=== PATIENT | female | born 1960 | race Caucasian/White ===

== ENCOUNTER → 2021-02-16 12:39 | Outpatient (BNVA) | payer MEDICARE, MEDICAID, SELFPAY | PROVIDERS: Family Provider Family Medicine; PCP Family Medicine; Referring Provider Internal Medicine Cardiovascular Disease; Visit Provider Internal Medicine | DX: E11.40 Type 2 diabetes mellitus with diabetic neuropathy, unspecified (principal); E11.59 Type 2 diabetes mellitus with other circulatory complications; I25.10 Atherosclerotic heart disease of native coronary artery without angina pectoris; E11.65 Type 2 diabetes mellitus with hyperglycemia | CPT/HCPCS: 99204 ==

== ENCOUNTER 2021-03-28 10:01 | Outpatient (CLI) | payer MEDICARE, MEDICAID, SELFPAY ==
--- NOTE | 2021-03-28 10:15 | USCV_ITS ---
Tammi Clark Age: 61 Gender: F : 1960 Exam Date: 03/28/2021 10:18 Ordering Phys: Xochilt Gibson Technologist: Exam [place] [facility] [place]: Risk Factors: Previous Vascular Surgery: Right Brachial BP: / Left Brachial BP: / Right Left Velocity (cm/s) Spectral Plaque Velocity (cm/s) Spectral Plaque Syst/Diast Broadening Syst/Diast Broadening 82.70/ 12.10 Prox CCA 72.10 / 6.00 134.85/26.65 Mid CCA 61.10 / 11.00 95.90/ 15.40 Hetro Distal CCA 70.10 / 10.00 Hetro 136.70/20.10 Hetro Prox ICA 100.20/ 19.00 Hetro 168.60/36.80 Hetro Mid ICA 98.20 / 21.00 Hetro 157.80/29.10 Distal ICA 136.40/ 21.50 207.10 ECA 128.20 0.98 ICA/CCA 1.89 Antegrade Vertebral Antegrade 46.80/ 6.50 cm/s 54.10/ 12.00 cm/s Tri Subclavian Tri 115.2 121.2 0 0 FINDINGS Internal carotid artery on the right side moderate to heavy heterogeneous plaques at the bifurcation and proximal carotid arteries bilaterally. Mild to moderate scattered plaques in the common carotid arteries bilaterally. Antegrade flow in the vertebral arteries bilaterally. Elevated velocity in the right external carotid artery Normal Doppler flow velocities in the subclavian arteries bilaterally CONCLUSIONS Moderate to heavy heterogeneous plaques at the right bifurcation and proximal internal carotid artery with Doppler features, suggesting 50 to 69% stenosis . Moderate heterogeneous plaques at the left bifurcation and proximal internal carotid artery with Doppler features, suggesting less than 50% stenosis. Elevated velocity in the external carotid artery on the right side, suggestive of hemodynamically significant stenosis. No significant stenosis in the subclavian and vertebral arteries bilaterally. No previous studies are available for comparison. Dr Hernan Bautista MD [facility] (Electronically Signed) Final Date: 30 Mar 2021 00:11 S
== END 2021-03-28 10:02 | disposition home or self-care (01) ==
LOC: US 10:05
PROVIDERS: PCP Family Medicine; Visit Provider Nurse Practitioner Family
DX: R09.89 Other specified symptoms and signs involving the circulatory and respiratory systems (principal); I65.23 Occlusion and stenosis of bilateral carotid arteries
CPT/HCPCS: 93880

== ENCOUNTER 2021-04-12 09:35 | Outpatient (CLI) | payer MEDICARE, MEDICAID, SELFPAY ==
--- NOTE | 2021-04-12 10:00 | CT_ITS ---
WS: [id number] CT ANGIOGRAM CAROTID ARTERIES HISTORY: I65.21 - Occlusion and stenosis of right carotid artery TECHNIQUE: CT angiogram is performed of the carotid arteries. During arterial injection imaging is ob tained from the skull base to the aortic arch in 1.25 mm imaging. Coronal and sagittal reformats are submitted, MIP imaging also reviewed. Additional multiplanar reformats of the carotid arteries are ryan bmitted. NASCET criteria utilized. All CT scans at [facility] use at least one of these d ose optimization techniques: automated exposure control; mA and/or kV adjustment per patient size (in cludes targeted exams where dose is matched to clinical indication); or iterative reconstruction. CONTRAST: Omnipaque 350; 95 mL IV. DLP: 954.76 mGycm COMPARISON: None available. Right carotid: Common carotid artery: Normally arises from the innominate artery. There are a few scattered calcifie d plaques and mild intimal thickening. Internal carotid artery: Moderate burden of calcified plaque and intimal thickening at the bifurcatio n. Irregular plaque at the bifurcation extending into the proximal ICA. Stenosis calculated at 61%. External carotid artery: Patent. Left carotid: Common carotid artery: Mild plaque without stenosis. Internal carotid artery: Calcified plaque involving the proximal ICA with stenosis calculated at 40%. External carotid artery: Patent. Right vertebral artery: Unremarkable. Left vertebral artery: Unremarkable. Arises normally from the left subclavian artery. Subclavian arteries: Mild atherosclerotic disease within the subclavian arteries. No significant sten osis identified. Upper thorax: Normal. Thyroid gland: Normal. Osseous structures: Straightening of the normal cervical lordosis. Moderate size vertebral body osteo phytes with disc space narrowing. Skull base: Moderate amount of calcified plaque through the cavernous sinuses of the intracranial car otid artery. CT/CT angio neck [id number] IMPRESSION: 1. LEFT ICA stenosis 61%. 2. RIGHT ICA stenosis 40%. 3. Moderate atherosclerotic plaque within the intracranial carotid arteries in the cavernous sinus.
[2021-04-12 10:23] LABS: Blood Urea Nitrogen 15 mg/dL (8-23); Glomerular Filtration Rate 84.8 mL/min (90-130)
== END 2021-04-12 09:36 | disposition home or self-care (01) ==
PROVIDERS: PCP Family Medicine; Visit Provider Nurse Practitioner Family
DX: I65.23 Occlusion and stenosis of bilateral carotid arteries (principal)
CPT/HCPCS: 70498; 82565; 84520; Q9967

== ENCOUNTER 2021-06-14 08:37 | Outpatient (CLI) | payer OTHER, MEDICAID, SELFPAY ==
--- NOTE | 2021-06-14 08:45 | USCV_ITS ---
Tammi Clark Age: 61 Gender: F : 1960 Exam Date: 06/14/2021 09:08 Ordering Phys: Myron Lerner MD (Andy) ([email or web address] [place]) Technologist: Exam Location: [facility] [place] Indication: CCA STENOSIS Risk Factors: Previous Vascular Surgery: Right Brachial BP: / Left Brachial BP: / Right Left Velocity (cm/s) Spectral Plaque Velocity (cm/s) Spectral Plaque Syst/Diast Broadening Syst/Diast Broadening 92.60/ 14.30 Prox CCA 75.00 / 9.70 81.60/ 13.20 Mid CCA 75.00 / 7.30 78.30/ 15.40 Hetro Distal CCA 78.20 / 11.30 Hetro 180.00/15.00 Hetro Prox ICA 106.20/ 17.10 Hetro 133.40/26.70 Hetro Mid ICA 127.10/ 20.90 Hetro 123.70/20.60 Hetro Distal ICA 180.20/ 37.90 Hetro 185.30 ECA 151.80 1.98 ICA/CCA 2.30 Antegrade Vertebral Antegrade 48.40/ 7.30 cm/s 67.00/ 12.40 cm/s Tri Subclavian Tri 121.0 141.4 0 0 FINDINGS Comparison:. 03/28/21 and CTA 04/12/21. Moderate, stable elevation of velocity right ICA with mild tubulence. Mild elevation of ECA velocity. Diffuse scattered plaque in each carotid artery. Mild elevation of velocity left ICA. Bilateral antegrade vertebral arteries. CONCLUSIONS Right ICA stenosis 50-69%. No interval change in stenosis since prior exam. Left ICA stenosis < 50%. No interval change in stenosis since prior exam. Bilateral diffuse plaque is stable. Dr. Leslie Titus DO (Electronically Signed) Final Date: 14 June 2021 11:55 S
== END 2021-06-14 08:38 | disposition home or self-care (01) ==
PROVIDERS: PCP Family Medicine; Visit Provider Thoracic Surgery (Cardiothoracic Vascular Surgery)
DX: I65.23 Occlusion and stenosis of bilateral carotid arteries (principal)
CPT/HCPCS: 93880

== ENCOUNTER 2021-12-01 12:52 | Emergency (ER) | payer OTHER, MEDICAID, SELFPAY ==
[2021-12-01 13:21] VITALS: BP 124/76; PULSE 67; RESP 16; TEMP 37.2; O2SAT 96; BMI 35.9
--- NOTE | 2021-12-01 14:37 | ED_ITS ---
HPI - COVID General: Chief Complaint: COVID symptoms Stated Complaint: Running a fevor last night, and ABD Pain Time Seen by Provider: 12/01/21 13:58 Triage information: Has fever, cough or shortness of breath . No known COVID + exposure last 14 days History of Present Illness: HPI Narrative: Ms. Clark is a 61-year-old lady with history of hypertension, hyperlipidemia, diabetes, CAD, history of atrial fibrillation who presents to the emergency department due to fever and generalized symptoms. Symptom onset was noticed yesterday with subjective fevers and chills. Additionally she noted bilateral lower abdominal discomfort that radiates to bilateral flanks. She has generalized muscle aches and pains. She has been vaccinated against flu and COVID and does not know of sick contacts other than minor cold-like symptoms. Overall the course of symptoms has persisted. She has taken wddk-yqe-jkequsf medications without significant relief. Intensity is moderate. No other specific exacerbating relieving factors identified. MD complaint: has COVID symptoms Prior covid testing: no COVID 19 common symptoms: positive fever(s), chills, cough, body aches and nausea Onset (ago): day(s) Severity: moderate Pertinent comorbid conditions: diabetes, hypertension and heart disease Treatment prior to arrival: acetaminophen and ibuprofen COVID Results: SARS-CoV-2 Antigen (Rapid) Positive (Negative) H 12/01/21 15:20 12/01/21 Review of Systems General: Reports: 10 or more systems reviewed and unremarkable except in HPI and below Const: Reports: fever(s), chills and body aches GI: Reports: nausea PFSH ED PFSH: Medical History Atrial fibrillation CAD (coronary artery disease) COPD (chronic obstructive pulmonary disease) Diabetes mellitus HTN (hypertension) Hyperlipidemia Surgical History S/P CABG (coronary artery bypass graft) Family History Brother Cancer Sister Cancer Father CAD (coronary artery disease) Myocardial infarction Diabetes Hypertension Mother CAD (coronary artery disease) Social History Smoking and tobacco status: former smoker Physical Exam Const: COMMON NORMALS: alert GENERAL APPEARANCE: cooperative, well developed and ill appearing (Mildly) HENMT: COMMON NORMALS: normocephalic and atraumatic HEAD & SCALP: normocephalic and atraumatic THROAT: posterior oropharynx normal Eye: COMMON NORMALS: conjunctivae normal CONJUNCTIVA: Yes conjunctivae nor mal SCLERA: sclerae normal Neck/C-Spine: COMMON NORMALS: supple GENERAL: Yes trachea midline Resp: COMMON NORMALS: normal respiratory effort EFFORT & INSPECTION: Yes able to speak in complete sentences AUSCULTATION: rhonchi lower bilaterally Cardio: COMMON NORMALS: regular rate and regular rhythm RATE: regular rate RHYTHM: regular rhythm GI: COMMON NORMALS: Soft to palpation PALPATION: Yes Soft to palpation and No Tenderness to palpation present (GI) PERCUSSION: normal to percussion Extremity: GENERAL: Yes normal exam except as noted and No edema Neuro: COMMON NORMALS: moves all extremities SENSORIUM/ORIENTATION: Yes alert and No Orientation impaired Psych: COMMON NORMALS: mental status grossly normal and Normal thought process present THOUGHT PROCESS: Normal thought process present Course ED course: - Patient was seen and evaluated by me at bedside - Patient placed on cardiac monitors, IV access obtained - Initial evaluation notable for exam as above -IV fluids given - Labs notable for mild hemoconcentration, no leukocytosis. There is squamous epithelial contamination in the nitrate negative urinalysis, low clinical suspicion for infection especially given positive COVID test and more myalgia sounding in nature - Imaging notable for negative chest x-ray - Upon serial reexamination after treatment the patient was mildly proved - Based on patient history, evaluation, labs, and imaging as interpreted the most likely cause of the patient's condition is COVID-19. Patient does not require oxygen at this time. - The results of ED evaluation were discussed with the patient including prescriptions and/or symptomatic cares (if applicable) including appropriate and responsible use, followup plan, and return precautions. Offered monoclonal antibody infusion in the outpatient setting, order will be placed. The patient verbalized understanding and felt safe for discharge. - Patient discharged in satisfactory condition. Note: Click bubbles or prepopulated huber in note writing are used for assistance with data collection and billing and are inherently more limited than narrative and other text portions of this note. Please use narrative for additional clinical history and defer to narrative/free test for any case of contradictory information. If information appears in only free text or click bubble it should be considered present or absent as reported. Please contact note marine underwriter for clarifications of clinical information or contradictory information. MDM is a brief summary, contradictory or erroneous seeming information should be clarified and full note should be reviewed. Vital Signs: Vital signs: Vital Signs Temperature 99.0 F 12/01/21 13:21 Pulse Rate 75 12/01/21 17:30 Respiratory Rate 16 12/01/21 17:30 Blood Pressure 155/77 12/01/21 17:30 Pulse Oximetry 92 12/01/21 17:30 MDM - COVID MDM Narrative Medical decision making narrative: 61-year-old lady presenting with Covid-like symptoms found to be Covid positive. No oxygen requirement and did have some improvement with symptom treatment. Satisfactory for outpatient management. Medical Records Attestation: I reviewed the patient's medical records. Lab Data Attestation: I reviewed the patient's lab results. Result diagrams: 12/01/21 15:20 12/01/21 15:20 Labs: Lab Results 12/01/21 12/01/21 12/01/21 15:20 15:20 15:20 WBC 4.6 10^3/uL 10^3/uL (4.0-10.0) RBC 5.52 10^6/uL H 10^6/uL (4.1-5.3) Hgb 15.5 g/dL H g/dL (11.5-15.3) Hct 47.3 % H % (37.0-47.0) MCV 85.7 fl fl (81-99) MCH 28.1 pg pg (28.0-34.0) MCHC 32.8 g/dL g/dL (30.0-36.0) RDW 13.0 % % (12.1-15.1) Plt Count 176 10^3/cmm 10^3/cmm (130-400) MPV 10.6 fL H fL (7.4-10.4) Neut % (Auto) 51.0 % % Lymph % (Auto) 34.1 % % [place] % (Auto) 14.3 % % Eos % (Auto) 0.0 % % Baso % (Auto) 0.4 % % Neut # (Auto) 2.32 10^3/uL 10^3/uL (1.8-7.7) Lymph # (Auto) 1.6 10^3/uL 10^3/uL (0.8-4.8) [place] # (Auto) 0.7 10^3/uL 10^3/uL (0.2-0.9) Eos # (Auto) 0.0 10^3/uL 10^3/uL (0.0-0.8) Baso # (Auto) 0.0 10^3/uL 10^3/uL (0.0-0.1) Nucleated RBC % (auto) 0 % % Nucleated RBCs # 0.0 /100WBC /100WBC Sodium 135 mmol/L L mmol/L (136-145) Potassium 3.9 mmol/L mmol/L (3.5-5.1) Chloride 99 mmol/L mmol/L (98-107) Carbon Dioxide 23 mmol/L mmol/L (22-29) Anion Gap 16.9 (5-19) BUN 15 mg/dL mg/dL (8-23) Creatinine 0.8 mg/dL mg/dL (0.5-0.9) GFR Calculation 72.7 mL/min L mL/min (90-130) Glucose 141 mg/dL H mg/dL (65-115) Calculated Osmolality 283 mOsm/kg L mOsm/kg (285-295) Calcium 8.6 mg/dL mg/dL (8.5-10.5) Total Bilirubin 0.2 mg/dL mg/dL (0.15-1.2) AST 25 U/L U/L (0-32) ALT 28 U/L U/L (0-33) Alkaline Phosphatase 79 IU/L IU/L (35-105) Total Protein 7.0 g/dL g/dL (6.6-8.7) Albumin 4.1 g/dL g/dL (3.5-5.2) Globulin 2.9 g/dL g/dL (1.3-4.6) Lipase 35 U/L U/L (13-60) Urine Color Urine Appearance Urine pH Ur Specific [place] Urine Protein Urine Glucose (UA) Urine Ketones Urine Blood Urine Nitrate Urine Bilirubin Urine Urobilinogen Ur Leukocyte Esterase Urine RBC Urine WBC Ur Squamous Epith Cells Amorphous Sediment Urine Bacteria Influenza Type A Ag Negative (Negative) Influenza Type B Ag Negative (Negative) SARS-CoV-2 Ag (Rapid) 12/01/21 12/01/21 15:20 15:59 WBC RBC Hgb Hct MCV MCH MCHC RDW Plt Count MPV Neut % (Auto) Lymph % (Auto) [place] % (Auto) Eos % (Auto) Baso % (Auto) Neut # (Auto) Lymph # (Auto) [place] # (Auto) Eos # (Auto) Baso # (Auto) Nucleated RBC % (auto) Nucleated RBCs # Sodium Potassium Chloride Carbon Dioxide Anion Gap BUN Creatinine GFR Calculation Glucose Calculated Osmolality Calcium Total Bilirubin AST ALT Alkaline Phosphatase Total Protein Albumin Globulin Lipase Urine Color Yellow (Yellow) Urine Appearance Sl cloudy A (CLEAR) Urine pH 5 (5-7) Ur Specific [place] 1.010 (1.005-1.030) Urine Protein Neg (Negative) Urine Glucose (UA) 4+ H (Normal) Urine Ketones Negative (Negative) Urine Blood Trace H (Negative) Urine Nitrate Negative (Negative) Urine Bilirubin Neg (Negative) Urine Urobilinogen Neg mg/dL mg/dL (Negative) Ur Leukocyte Esterase 2+ H (Negative) Urine RBC 0-4 /hpf H /hpf (0-2) Urine WBC 5-10 /hpf H /hpf (0-5) Ur Squamous Epith Cells 15-25 /hpf H /hpf (0-5) Amorphous Sediment Not Reportable Urine Bacteria 1+ /hpf H /hpf (NONE) Influenza Type A Ag Influenza Type B Ag SARS-CoV-2 Ag (Rapid) Positive H (Negative) COVID Results: SARS-CoV-2 Antigen (Rapid) Positive (Negative) H 12/01/21 15:20 12/01/21 EKG Data EKG 1: Attestation: I personally reviewed and interpreted this EKG as follows: EKG interpretation date: 12/01/21 EKG interpretation time: 15:21 Ischemic changes: non-specific ST-T wave changes Interpretation: Twelve-lead EKG shows a regular rhythm at a rate of 87. NE interval 180, QRS duration 94, QTc 401. Normal axis. Interpretation: Sinus rhythm. Nonspecific ST segment abnormalities. Discharge Plan Discharge Patient Disposition: Home Clinical Impression: COVID-19, Myalgia, Dehydration, Glucosuria Condition: Stable Prescriptions: No Action lisinopril 5 mg tablet 5 mg PO DAILY 0RF aspirin 325 mg tablet 325 mg PO DAILY 0RF pantoprazole 40 mg tablet,delayed release (DR/EC) 40 mg PO DAILY 0RF gabapentin 300 mg capsule 300 mg PO BID 0RF potassium chloride 20 mEq tablet,ER particles/crystals 20 meq PO DAILY 0RF atorvastatin 20 mg tablet 20 mg PO DAILY 0RF Lantus U-100 Insulin 100 unit/mL solution See Rx Instructions SUBCUT BID 0RF Rx Instructions: 37 in the morning, 47 at night SUBCUT twice a day; Trulicity 1.5 mg/0.5 mL pen injector SUBCUT Q7D 0RF Rx Instructions: q7days Jardiance 10 mg tablet 10 mg PO DAILY 0RF citalopram 10 mg tablet 10 mg PO DAILY 0RF Discharge Orders: Discharge ED (Routine); Ordered 12/01/21 Ordered By: Tobias Hall Referrals: Arben Concepcion [Primary Care Provider] - Discharge Diet: Usual diet Discharge Activity: Resume usual activity Patient Instructions: COVID-19 (Coronavirus Disease 2019) (ED) Activity Restrictions/Additional Instructions: Thank you for visiting the emergency department. You were seen and evaluated for shortness of breath and aches and pains. Symptoms are likely related to COVID-19. Your labs do show mild evidence of dehydration as well as the positive COVID test. Your urinalysis does show a few white blood cells however there are is skin cell contamination likely causing this. You may use [id number] medications for symptoms. Please return to the emergency department for worsening symptoms, inability tolerate oral intake, oxygen saturations on pulse ox less than 90%, or anything else that you are concerned about a feel needs emergency department evaluation. Coding Level of Care Code ED Java Web User Interface Developer for Srini Hughes Exam Comprehensive
--- NOTE | 2021-12-01 14:38 | PC.NURSE ---
REPORT GIVEN TO JUDY ELIZALDE PATIENT PLACE ON ED CART NOTIFIED THAT PATIENT IS NOT ON THE MONITOR
--- NOTE | 2021-12-01 14:44 | XR_ITS ---
WS: [id number] Exam: XR chest 1V portable [id number] Date/Time of Exam: 12/01/2021 2:50 PM Reason For Exam: cough Comparison 04/10/2017. The lungs are clear and fully inflated. No pleural effusions. Normal heart size. The mediastinum is n ormal in contour. Signs of previous CABG surgery with median sternotomy. Bony structures are intact. XR/XR chest 1V portable [id number] IMPRESSION: 1. No acute cardiopulmonary finding.
--- NOTE | 2021-12-01 14:45 | ECG_ITS ---
[facility] Test Date: 2021-12-01 Pat Name: Tammi Clark Department: Room: Gender: Female Cook'S Assistant: : 1960 Requested By: Tobias Hall Order Number: [id number] Jennifer MD: Hernan Bautista M.D. Measurements Intervals [place] Rate: 87 P: 41 DE: 180 QRS: 21 QRSD: 94 T: 96 QT: 357 QTc: 431 Interpretive Statements SINUS RHYTHM INCOMPLETE RIGHT BUNDLE BRANCH BLOCK [90+ ms QRS DURATION, TERMINAL R IN V1/V2, 40+ ms S IN I/aVL/V4/V5/V6] NONSPECIFIC ST & T-WAVE ABNORMALITY Compared to ECG 04/10/2017 22:56:18 Incomplete right bundle-branch block now present Supraventricular rhythm no longer present T-wave abnormality still present Electronically Signed On 12-02-2021 14:19:09 SALES MERCHANDISING SPECIALIST by Hernan Bautista M.D. [id number]
[2021-12-01 15:29] LABS: Basophils % 0.4 %; Hematocrit 47.3 % (37.0-47.0); Hemoglobin 15.5 g/dL (11.5-15.3); Lymphocytes # 1.6 10^3/uL (0.8-4.8); Lymphocytes % 34.1 %; Mean Corpuscular HGB Conc 32.8 g/dL (30.0-36.0); Mean Corpuscular Hemoglobin 28.1 pg (28.0-34.0); Mean Corpuscular Volume 85.7 fl (81-99); Mean Platelet Volume 10.6 fL (7.4-10.4); Monocytes # 0.7 10^3/uL (0.2-0.9); Monocytes % 14.3 %; Neutrophils # 2.32 10^3/uL (1.8-7.7); Nucleated Red Blood Cells % 0 %; Platelet Count 176 10^3/cmm (130-400); Red Blood Count 5.52 10^6/uL (4.1-5.3); White Blood Count 4.6 10^3/uL (4.0-10.0)
[2021-12-01 15:34] VITALS: BP 121/63; PULSE 70; RESP 16; O2SAT 96; O2SAT 99
[2021-12-01 15:50] LABS: Alanine Aminotransferase 28 U/L (0-33); Albumin Level 4.1 g/dL (3.5-5.2); Alkaline Phosphatase 79 IU/L (35-105); Anion Gap 16.9 (5-19); Aspartate Amino Transferase 25 U/L (0-32); Blood Urea Nitrogen 15 mg/dL (8-23); Calcium 8.6 mg/dL (8.5-10.5); Carbon Dioxide 23 mmol/L (22-29); Chloride 99 mmol/L (98-107); Globulin 2.9 g/dL (1.3-4.6); Glomerular Filtration Rate 72.7 mL/min (90-130); Glucose 141 mg/dL (65-115); Lipase 35 U/L (13-60); Osmolality Calculated 283 mOsm/kg (285-295); Potassium 3.9 mmol/L (3.5-5.1); Sodium 135 mmol/L (136-145); Total Bilirubin 0.2 mg/dL (0.15-1.2)
[2021-12-01] MEDS: sodium chloride 0.9% 500 ML 999 ML IV (16:00)
[2021-12-01 16:36] VITALS: BP 144/79; PULSE 89; RESP 17; O2SAT 97
[2021-12-01 16:45] LABS: Protein Urine Neg (Negative); Urine Color Yellow (Yellow); pH Urine 5 (5-7)
[2021-12-01 16:45] LABS: SARS Covid-2 Antigen Positive (Negative)
[2021-12-01 16:46] LABS: Add Urine Microscopic? YES; Bilirubin Urine Neg (Negative); Blood Urine Trace (Negative); Glucose Urine UA 4+ (Normal); Ketones Urine Negative (Negative); Leukocyte Esterase Urine 2+ (Negative); Nitrate Urine Negative (Negative); Urobilinogen Urine Neg (Negative)
[2021-12-01 16:47] LABS: Add Urine Culture? No; Bacteria Urine 1+ /hpf; RBC Urine 0-4 /hpf (0-2); Squamous Epithelial Cell Urine 15-25 /hpf (0-5)
[2021-12-01 17:30] VITALS: BP 155/77; PULSE 75; RESP 16; O2SAT 92
[2021-12-01 17:48] LABS: Influenza A by IFA Negative (Negative); Influenza B by IFA Negative (Negative)
== END 2021-12-01 17:25 | disposition home or self-care (01) ==
PROVIDERS: Emergency Provider Emergency Medicine; PCP Family Medicine
DX: U07.1 COVID-19 (principal); E86.0 Dehydration; R81 Glycosuria; I48.91 Unspecified atrial fibrillation; I25.10 Atherosclerotic heart disease of native coronary artery without angina pectoris; J44.9 Chronic obstructive pulmonary disease, unspecified; E11.9 Type 2 diabetes mellitus without complications; I10 Essential (primary) hypertension; E78.5 Hyperlipidemia, unspecified; Z87.891 Personal history of nicotine dependence; Z79.82 Long term (current) use of aspirin; Z79.4 Long term (current) use of insulin
CPT/HCPCS: 71045; 80053; 81001; 83690; 85025; 87426; 87804; 93005; 99283; J7040

== ENCOUNTER 2022-01-17 14:20 | Outpatient (CLI) | payer OTHER, MEDICAID, SELFPAY ==
--- NOTE | 2022-01-17 14:15 | USCV_ITS ---
Tammi Clark Age: 61 Gender: F : 1960 Exam Date: 01/17/2022 14:35 Ordering Phys: Myron Lerner MD (Andy) ([email or web address] [place]) Technologist: Volodymyr Joseph Exam Location: [facility] [place] Indication: CAROTID STENOSIS Risk Factors: Previous Vascular Surgery: Right Brachial BP: / Left Brachial BP: / Right Left Velocity (cm/s) Spectral Plaque Velocity (cm/s) Spectral Plaque Syst/Diast Broadening Syst/Diast Broadening 206.30/18.30 Prox CCA 106.20/ 21.20 78.50/ 22.50 Mid CCA 94.00 / 17.90 87.00/ 18.60 Distal CCA 79.50 / 17.90 132.50/31.20 Prox ICA 119.60/ 31.10 189.60/50.70 Mid ICA 91.00 / 25.60 108.80/18.60 Distal ICA 122.10/ 38.70 105.60 ECA 192.60 2.42 ICA/CCA 0.97 Antegrade Vertebral Antegrade 90.10/ 26.40 cm/s 51.50/ 11.10 cm/s Bi Subclavian Tri 164.7 123.5 0 0 FINDINGS Comparison:. /03/01. Diffuse bilateral scattered calcified plaque and intimal thickening throughout the common carotid arteries and extending through the bifurcation. Moderate elvation of right ICA velocity. Slightly improved stenosis on the left. Antegrade vertebral arteries. CONCLUSIONS Right ICA stenosis 50-69%. Left ICA stenosis < 50%. No interval change in stenosis since prior exam. Dr. Leslie Titus DO (Electronically Signed) Final Date: 17 January 2022 16:40 S
== END 2022-01-17 14:21 | disposition home or self-care (01) ==
LOC: RAD 14:21
PROVIDERS: PCP Family Medicine; Visit Provider Thoracic Surgery (Cardiothoracic Vascular Surgery)
DX: I65.23 Occlusion and stenosis of bilateral carotid arteries (principal)
CPT/HCPCS: 93880

== ENCOUNTER → 2022-09-13 11:51 | Outpatient (BNVA) | payer MEDICARE, MEDICAID, SELFPAY | PROVIDERS: PCP Family Medicine; Visit Provider Internal Medicine Cardiovascular Disease | DX: I48.19 Other persistent atrial fibrillation (principal); I25.810 Atherosclerosis of coronary artery bypass graft(s) without angina pectoris; Z95.1 Presence of aortocoronary bypass graft; Z87.891 Personal history of nicotine dependence; I10 Essential (primary) hypertension; E78.5 Hyperlipidemia, unspecified; E11.40 Type 2 diabetes mellitus with diabetic neuropathy, unspecified; E11.649 Type 2 diabetes mellitus with hypoglycemia without coma; Z79.4 Long term (current) use of insulin; E11.59 Type 2 diabetes mellitus with other circulatory complications | CPT/HCPCS: 99213; 99214 ==

== ENCOUNTER 2022-11-07 14:50 | Outpatient (CLI) | payer MEDICARE, MEDICAID, SELFPAY ==
--- NOTE | 2022-11-07 15:15 | USCV_ITS ---
Tammi Clark Age: 62 Gender: F : 1960 Exam Date: 11/07/2022 15:08 Ordering Phys: Myron Lerner MD (Andy) ([email or web address] [place]) Technologist: CARISA Exam Location: [facility] [place] Indication: Carotid Stenosis Risk Factors: Previous Vascular Surgery: Right Brachial BP: / Left Brachial BP: / Right Left Velocity (cm/s) Spectral Plaque Velocity (cm/s) Spectral Plaque Syst/Diast Broadening Syst/Diast Broadening 89.30/ 14.30 Prox CCA 75.00 / 11.00 Hetro 67.30/ 13.20 Hetro Mid CCA 88.20 / 15.40 Hetro 79.40/ 18.70 Hetro Distal CCA 83.80 / 16.50 Hetro 84.10/ 14.50 Hetro Prox ICA 122.40/ 28.70 Hetro 147.60/57.50 Hetro Mid ICA 110.30/ 26.50 Hetro 185.30/52.20 Hetro Distal ICA 195.80/ 48.20 Hetro 131.50 Hetro ECA 99.20 Hetro 2.07 ICA/CCA 2.22 Antegrade Vertebral Antegrade 76.20/ 18.40 cm/s 56.20/ 5.50 cm/s Tri Subclavian Tri 194.2 94.80 0 FINDINGS comparison 01/17/22 CONCLUSIONS Progressed velocities in the ICA's distally compared to previous. This could be further evaluated with CTA. Right ICA stenosis 50-69% with elevated velocities in the mid right ICA. Moderate calcified atheromatous plaque right carotid bulb/ICA. Left ICA stenosis <50% at the upper end of the range.. Moderate calcified atheromatous plaque left carotid bulb/ICA. Normal antegrade Doppler flow noted in the right vertebral artery. Normal antegrade Doppler flow noted in the left vertebral artery. Robert Sellers MD (Electronically Signed) Final Date: 07 November 2022 16:10 S
== END 2022-11-07 14:51 | disposition home or self-care (01) ==
LOC: RAD 14:51
PROVIDERS: PCP Family Medicine; Visit Provider Thoracic Surgery (Cardiothoracic Vascular Surgery)
DX: I65.23 Occlusion and stenosis of bilateral carotid arteries (principal); R09.89 Other specified symptoms and signs involving the circulatory and respiratory systems
CPT/HCPCS: 93880

== ENCOUNTER → 2022-12-13 11:01 | Outpatient (BNVA) | payer MEDICARE, MEDICAID, SELFPAY | PROVIDERS: PCP Family Medicine; Visit Provider Internal Medicine Cardiovascular Disease | DX: I25.810 Atherosclerosis of coronary artery bypass graft(s) without angina pectoris (principal); I10 Essential (primary) hypertension; I48.19 Other persistent atrial fibrillation; E11.40 Type 2 diabetes mellitus with diabetic neuropathy, unspecified; E11.65 Type 2 diabetes mellitus with hyperglycemia; Z79.4 Long term (current) use of insulin; I65.21 Occlusion and stenosis of right carotid artery; Z95.1 Presence of aortocoronary bypass graft; Z87.891 Personal history of nicotine dependence | CPT/HCPCS: 99214; Q3014 ==

== ENCOUNTER 2023-05-02 10:01 | Outpatient (CLI) | payer MEDICARE, MEDICAID, SELFPAY ==
--- NOTE | 2023-05-02 10:09 | USCV_ITS ---
Tammi Clark Age: 63 Gender: F : 1960 Exam Date: 05/02/2023 10:28 Ordering Phys: Myron Lerner MD (Andy) ([email or web address] [place]) Technologist: DON [place] [facility] [place]: Carotid Stenosis Risk Factors: Previous Vascular Surgery: Right Brachial BP: / Left Brachial BP: / Right Left Velocity (cm/s) Spectral Plaque Velocity (cm/s) Spectral Plaque Syst/Diast Broadening Syst/Diast Broadening 78.80/ 13.70 Prox CCA 73.90 / 16.50 78.80/ 17.80 Mid CCA 77.90 / 18.70 73.90/ 16.00 Distal CCA 74.90 / 21.70 119.20/25.10 Prox ICA 73.20 / 22.20 183.50/61.20 Mid ICA 121.20/ 29.20 76.90/ 12.40 Distal ICA 119.30/ 29.80 228.50 ECA 126.30 2.33 ICA/CCA 1.56 Antegrade Vertebral Antegrade 54.40/ 11.70 cm/s 47.40/ 9.30 cm/s Tri Subclavian Tri 115.8 114.4 0 0 FINDINGS comp 11/01 CONCLUSIONS Right ICA stenosis 50-69%. Right Mid ICA velocity progressed since 11/01. Consider CTA Moderate atheromatous plaque right carotid bulb/ICA. Left ICA stenosis <50%. Moderate atheromatous plaque left carotid bulb/ICA. Normal antegrade Doppler flow noted in the right vertebral artery. Normal antegrade Doppler flow noted in the left vertebral artery. Robert Sellers MD (Electronically Signed) Final Date: 02 May 2023 11:08 S
== END 2023-05-02 10:02 | disposition home or self-care (01) ==
PROVIDERS: PCP Family Medicine; Visit Provider Thoracic Surgery (Cardiothoracic Vascular Surgery)
DX: I65.23 Occlusion and stenosis of bilateral carotid arteries (principal)
CPT/HCPCS: 93880

== ENCOUNTER → 2023-05-09 09:02 | Outpatient (BNVA) | payer MEDICARE, MEDICAID, SELFPAY | PROVIDERS: PCP Family Medicine; Visit Provider Thoracic Surgery (Cardiothoracic Vascular Surgery) | DX: R09.89 Other specified symptoms and signs involving the circulatory and respiratory systems (principal); I65.23 Occlusion and stenosis of bilateral carotid arteries; Z87.891 Personal history of nicotine dependence | CPT/HCPCS: 99213 ==

== ENCOUNTER → 2023-08-15 10:41 | Outpatient (BNVA) | payer MEDICARE, MEDICAID, SELFPAY | PROVIDERS: PCP Family Medicine; Visit Provider Internal Medicine Cardiovascular Disease | DX: I25.810 Atherosclerosis of coronary artery bypass graft(s) without angina pectoris (principal); I10 Essential (primary) hypertension; I48.19 Other persistent atrial fibrillation; E11.40 Type 2 diabetes mellitus with diabetic neuropathy, unspecified; E11.65 Type 2 diabetes mellitus with hyperglycemia; I65.21 Occlusion and stenosis of right carotid artery; Z95.1 Presence of aortocoronary bypass graft; Z87.891 Personal history of nicotine dependence; Z79.4 Long term (current) use of insulin | CPT/HCPCS: 99214 ==

== ENCOUNTER 2023-09-18 09:53 | Outpatient (CLI) | payer MEDICARE, MEDICAID, SELFPAY ==
--- NOTE | 2023-09-18 10:00 | USCV_ITS ---
Tammi Clark Age: 63 Gender: F : 1960 Exam Date: 09/18/2023 10:26 Ordering Phys: Myron Lerner MD (Andy) ([email or web address] [place] Technologist: DON Exam Location: [facility] [place] Indication: Stenosis Risk Factors: Previous Vascular Surgery: Right Brachial BP: / Left Brachial BP: / Right Left Velocity (cm/s) Spectral Plaque Velocity (cm/s) Spectral Plaque Syst/Diast Broadening Syst/Diast Broadening 74.30/ 14.50 Prox CCA 85.40 / 21.00 99.20/ 17.60 Mid CCA 67.00 / 21.00 72.80/ 19.80 Distal CCA 85.40 / 22.30 116.30/25.60 Prox ICA 95.60 / 27.40 57.80/ 13.10 Mid ICA 94.80 / 17.80 67.00/ 30.20 Distal ICA 97.10 / 28.90 132.30 ECA 108.70 1.17 ICA/CCA 1.14 Antegrade Vertebral Antegrade 68.40/ 17.10 cm/s 42.70/ 10.90 cm/s Bi Subclavian Tri 118.3 96.70 0 FINDINGS Comparison:. 05/02/23 Large amount of irregular plaque at the right carotid bifurcation. The right ICA velocity is not quite as high as on the prior exam. Mild parvus tarudus waveform distal right ICA suggesting a proximal stenosis. No high grade stenosis left ICA. Anegrade verebral arteries. CONCLUSIONS Bilateral ICA stenosis less than 50%. Less stenosis by velocity right ICA but there is a parvus tardus waveform suggesting a proximal stenosis. Recommend further evaluation by CTA carotid arteries. Dr. Leslie Titus DO (Electronically Signed) Final Date: 18 September 2023 15:36 S
== END 2023-09-18 09:54 | disposition home or self-care (01) ==
LOC: RAD 09:54
PROVIDERS: PCP Family Medicine; Visit Provider Thoracic Surgery (Cardiothoracic Vascular Surgery)
DX: I65.23 Occlusion and stenosis of bilateral carotid arteries (principal); R09.89 Other specified symptoms and signs involving the circulatory and respiratory systems
CPT/HCPCS: 93880

== ENCOUNTER → 2023-09-26 13:40 | Outpatient (BNVA) | payer MEDICARE, MEDICAID, SELFPAY | PROVIDERS: PCP Family Medicine; Visit Provider Thoracic Surgery (Cardiothoracic Vascular Surgery) | DX: R09.89 Other specified symptoms and signs involving the circulatory and respiratory systems (principal) | CPT/HCPCS: 99213 ==

== ENCOUNTER → 2024-07-02 14:34 | Outpatient (BNVA) | payer MEDICARE, MEDICAID, SELFPAY | PROVIDERS: PCP Family Medicine; Visit Provider Internal Medicine | DX: R09.89 Other specified symptoms and signs involving the circulatory and respiratory systems (principal); M54.2 Cervicalgia; I25.810 Atherosclerosis of coronary artery bypass graft(s) without angina pectoris; I10 Essential (primary) hypertension; I48.19 Other persistent atrial fibrillation; E11.40 Type 2 diabetes mellitus with diabetic neuropathy, unspecified; E11.65 Type 2 diabetes mellitus with hyperglycemia; I65.21 Occlusion and stenosis of right carotid artery; Z95.1 Presence of aortocoronary bypass graft | CPT/HCPCS: 99214 ==

== ENCOUNTER 2024-08-06 14:49 | Outpatient (CLI) | payer MEDICAID, OTHER, SELFPAY ==
--- NOTE | 2024-08-06 15:15 | USCV_ITS ---
Tammi Clark Age: 64 Gender: F : 1960 Exam Date: 08/06/2024 15:03 Ordering Phys: Ernesto Gaspar M.D ([email or web address]) Technologist: [place] [facility] [place]: cca disease Risk Factors: Previous Vascular Surgery: Right Brachial BP: / Left Brachial BP: / Right Left Velocity (cm/s) Spectral Plaque Velocity (cm/s) Spectral Plaque Syst/Diast Broadening Syst/Diast Broadening 80.20/ 11.50 Prox CCA 71.30 / 13.50 97.00/ 14.10 Mid CCA 79.90 / 15.20 60.60/ 11.20 Hetro Distal CCA 68.90 / 15.00 Hetro 125.00/19.80 Peng Prox ICA 91.60 / 16.20 Peng 158.30/36.90 Peng Mid ICA 82.90 / 14.50 Peng 143.40/32.00 Distal ICA 119.80/ 20.90 111.40 ECA 137.20 2.60 ICA/CCA 1.70 Antegrade Vertebral Antegrade 48.00/ 8.40 cm/s 42.90/ 6.20 cm/s Tri Subclavian Tri 130.9 139.7 0 0 CONCLUSIONS Right ICA stenosis 50-69%. Moderate calcified atheromatous plaque right carotid bulb/ICA. Left ICA stenosis <50%. Moderate calcified atheromatous plaque left carotid bulb/ICA. Intimal thickening in the common carotid arteries and internal carotid arteries bilaterally. Normal antegrade Doppler flow noted in the right vertebral artery. Normal antegrade Doppler flow noted in the left vertebral artery. Robert Sellers MD (Electronically Signed) Final Date: 06 August 2024 16:06 S
== END 2024-08-06 14:50 | disposition home or self-care (01) ==
LOC: RAD 14:50
PROVIDERS: PCP Family Medicine; Visit Provider Internal Medicine
DX: I65.23 Occlusion and stenosis of bilateral carotid arteries (principal); R09.89 Other specified symptoms and signs involving the circulatory and respiratory systems; M54.2 Cervicalgia
CPT/HCPCS: 93880

== ENCOUNTER 2024-09-03 13:39 | Outpatient (CLI) | payer OTHER, MEDICAID, SELFPAY ==
--- NOTE | 2024-09-03 13:45 | CT_ITS ---
WS: [id number] CTA NECK TECHNIQUE: Contrast enhanced CTA of the neck with coronal and sagittal reformatted images and maximum intensity projection (MIP) images. NASCET criteria utilized. CLINICAL INFORMATION: bilat carotid stenosis COMPARISON: None. DLP: 238.[address] scans at [facility] use at least one of these dose optimization techniques: automated e xposure control; mA and/or kV adjustment per patient size (includes targeted exams where dose is matc hed to clinical indication); or iterative reconstruction. FINDINGS RIGHT: RIGHT common carotid artery is patent. Moderate to severe stenosis at the carotid bulb with de nse calcified plaque with approximately 80% stenosis RIGHT proximal ICA 1 cm distal to the bifurcatio n with dense calcified plaque. RIGHT ICA is patent to the skull base. LEFT: LEFT common carotid artery is patent. Moderate calcified atheromatous plaque LEFT carotid bulb extending into the ICA with approximately 67% stenosis similar to previous. LEFT ICA remains patent t o the skull base. Cavernous carotid calcification. Proximal basilar artery is patent. Normal vascularity to the [employer] ter ritory bilaterally. Both ICAs are patent at the skull base. Moderate cavernous carotid calcification. Normal vascularity to the ANTIONE and MCA territories bilaterally. Aortic arch calcification. Prior sternotomy. Proximal sub clavian arteries are patent. Moderate spondylitic changes cervical spine. Both vertebral arteries are patent. Moderate stenosis LEFT proximal vertebral artery. CT/CT angio neck 69802 IMPRESSION: 1. Progressed RIGHT proximal ICA stenosis measures approximately 80% with a de nse calcified atheromatous plaque. Area of high-grade stenosis approximately 1 cm distal to the bifurcation. 2. LEFT proximal ICA stenosis measuring 67% similar to previous with dense sathya cified atheromatous plaque proximal the 1 cm distal to the bifurcation. 3. Both carotid bulbs demonstrate dense carotid plaque with moderate to severe stenosis progressed on the RIGHT and mild stenosis on the LEFT. 4. Both vertebral arteries are patent. Moderate stenosis LEFT proximal vertebr al artery. 5. Prominent retropharyngeal course to both cervical ICAs.
[2024-09-03 14:20] LABS: Blood Urea Nitrogen 17 mg/dL (8-23)
[2024-09-03] MEDS: iohexol 350 mg/mL 500 mL Btl (per mL) IV (14:20)
== END 2024-09-03 13:40 | disposition home or self-care (01) ==
LOC: RAD 13:40
PROVIDERS: PCP Family Medicine; Visit Provider Internal Medicine
DX: I65.23 Occlusion and stenosis of bilateral carotid arteries (principal); I65.02 Occlusion and stenosis of left vertebral artery
CPT/HCPCS: 70498; 82565; 84520

== ENCOUNTER 2025-01-17 11:14 | Emergency (ER) | payer MEDICAID, MEDICARE, SELFPAY ==
[2025-01-17 11:18] VITALS: BP 197/78; PULSE 89; RESP 15; TEMP 36.6; O2SAT 98; BMI 34.8
[2025-01-17 11:33] VITALS: BP 201/105; PULSE 93; RESP 18; O2SAT 100
[2025-01-17 12:17] VITALS: BP 150/95
[2025-01-17 12:21] VITALS: BP 150/95
--- NOTE | 2025-01-17 12:34 | W.ED.EPISTAX ---
HPI - Epistaxis General: Chief complaint: Epistaxis Stated complaint: cotton in nose asking to be removed Time Seen by Provider: 01/17/25 11:37 History of Present Illness: This patient is a 64-year-old white female who presents to the emergency department requesting removal of the Rhino Rocket that was placed at [facility] in [place] yesterday. Patient states she developed nosebleed from the right nostril yesterday morning. She states the device is uncomfortable. No active bleeding at this time. Related Data Home Medications ?Medication ?Instructions ?Recorded ?Confirmed gabapentin 300 mg capsule 300 mg PO BID 12/19/20 01/17/25 pantoprazole 40 mg tablet,delayed 40 mg PO DAILY 12/19/20 01/17/25 release empagliflozin 10 mg tablet 10 mg PO DAILY 02/16/21 01/17/25 (Jardiance) fluticasone furoate 100 1 inh inhalation BID 01/25/22 01/17/25 mcg-vilanterol 25 mcg/dose inhalation powder (Breo Ellipta) pravastatin 10 mg tablet 10 mg PO QPM 09/13/22 01/17/25 citalopram 10 mg tablet 20 mg PO DAILY 12/13/22 01/17/25 furosemide 20 mg tablet 20 - 40 mg PO DAILY 12/13/22 01/17/25 clopidogrel 75 mg tablet 75 mg PO QAM 01/05/25 01/17/25 insulin glargine 100 unit/mL (3 38 unit SUBCUT BID 01/05/25 01/17/25 mL) subcutaneous pen (Lantus Solostar U-100 Insulin) amoxicillin 875 mg-potassium 1 tab PO BID 01/17/25 01/17/25 clavulanate 125 mg tablet aspirin 81 mg tablet,delayed 81 mg PO DAILY 01/17/25 01/17/25 release dulaglutide 3 mg/0.5 mL 3 mg SUBCUT Q7D 01/17/25 01/17/25 subcutaneous [facility] lisinopril 10 mg tablet 10 mg PO DAILY 01/17/25 01/17/25 potassium chloride 10 mEq 10 meq PO DAILY 01/17/25 01/17/25 capsule,extended release Previous Rx's ?Medication ?Instructions ?Recorded apixaban 5 mg tablet (Eliquis) 5 mg PO BID #180 tabs 07/02/24 Allergies Allergy/AdvReac Type Severity Reaction Status Date / Time cefaclor (From Ceclor) Allergy Unknown Unknown Verified 01/05/25 15:38 rosuvastatin AdvReac stomach Verified 01/05/25 15:38 upset Review of Systems General: Reports: 10 or more systems reviewed and unremarkable except in HPI and below PFSH ED PFSH: Medical History Hyperlipidemia Diabetes mellitus COPD (chronic obstructive pulmonary disease) CAD (coronary artery disease) HTN (hypertension) Atrial fibrillation Surgical History S/P CABG (coronary artery bypass graft) Family History Brother Cancer Sister Cancer Father CAD (coronary artery disease) Myocardial infarction Diabetes Hypertension Mother CAD (coronary artery disease) Social History Smoking and tobacco/nicotine status: former use of tobacco/nicotine Quit status (tobacco/nicotine): has quit using Year quit tobacco: 2017 Alcohol intake: current Alcohol intake frequency: 0-2 Drinks per Day Substance/Drug Use: never Lives independently: Yes Household members: significant other Housing: House Marital status: / Number of children: 5 Pets and animals: Yes Pets & animals: dog(s) Physical Exam Const: COMMON NORMALS: no acute distress, patient oriented x3 and no limitations GENERAL APPEARANCE: cooperative and comfortable HENMT: COMMON NORMALS: normocephalic, atraumatic, moist oral mucous membranes and oropharynx normal HEAD & SCALP: normal to inspection, normocephalic and atraumatic FACE & SINUS: normal facial exam OTHER: Rhino Rocket in place right nostril. No active bleeding. No bleeding down the posterior pharynx. Eye: COMMON NORMALS: Equal, round and reactive pupils present, EOMs intact bilaterally and conjunctivae normal GENERAL EYE: appearance normal, both eyes and all related structures CONJUNCTIVA: Yes conjunctivae normal PUPIL: Yes Equal, round and reactive pupils present Neck/C-Spine: COMMON NORMALS: supple and no JVD Chest: COMMONS NORMALS: normal inspection of the chest Resp: COMMON NORMALS: normal respiratory effort and clear to auscultation bilaterally AUSCULTATION: clear to auscultation bilaterally Cardio: COMMON NORMALS: no JVD, regular rate, regular rhythm, No gallops present (Cardio), No murmurs present (Cardio) and No rub (Cardio) RATE: regular rate RHYTHM: regular rhythm GI: COMMON NORMALS: Normal to inspection, nondistended, normoactive bowel sounds present, Soft to palpation and non-tender AUSCULTATION: Yes normoactive bowel sounds PALPATION: Yes Soft to palpation : COMMON NORMALS: Yes no CVA tenderness BLADDER/KIDNEY EXAM: Yes no CVA tenderness Back/Pelvis: COMMON NORMALS: no CVA tenderness and thoracic and lumbar spine normal to inspection Extremity: COMMON NORMALS: normal to inspection Neuro: COMMON NORMALS: patient oriented x3 and CN's II-XII intact bilaterally Psych: COMMON NORMALS: mental status grossly normal, Normal thought process present and cooperative THOUGHT PROCESS: Normal thought process present Skin: COMMON NORMALS: no rashes or lesions noted, turgor normal and no jaundice GENERAL SKIN EXAM: no rashes or lesions noted and turgor normal Course Vital Signs: Vital signs: Vital Signs Temperature 97.8 F 01/17/25 11:18 Pulse Rate 93 01/17/25 11:33 Respiratory Rate 18 01/17/25 11:33 Blood Pressure 150/95 01/17/25 12:21 Pulse Oximetry 100 01/17/25 11:33 Oxygen Delivery Me thod Room Air 01/17/25 11:18 MDM - Epistaxis Medical Decision Making I recommended that we leave this device in place for 3 days otherwise she will likely rebleed. She does have an appointment with her vascular doctor tomorrow in [place]. I recommended she see if they could possibly remove it during that visit or she can have it removed by ENT or her primary care provider. She was discharged in stable condition. No radiology studies performed this visit Discharge Plan Discharge Patient Disposition: Home Clinical Impression: Epistaxis Condition: Stable Prescriptions: No Action pantoprazole 40 mg tablet,delayed release (DR/EC) 40 mg PO DAILY gabapentin 300 mg capsule 300 mg PO BID Breo Ellipta 100-25 mcg/dose blister with device 1 inh inhalation BID Jardiance 10 mg tablet 10 mg PO DAILY citalopram 10 mg tablet 20 mg PO DAILY pravastatin 10 mg tablet 10 mg PO QPM furosemide 20 mg tablet 20 - 40 mg PO DAILY Eliquis 5 mg tablet 5 mg PO BID Qty: 180 3RF insulin glargine [Lantus Solostar U-100 Insulin] 100 unit/mL (3 mL) insulin pen 38 unit SUBCUT BID clopidogrel 75 mg tablet 75 mg PO QAM potassium chloride 10 mEq capsule, extended release 10 meq PO DAILY aspirin [Aspir-81] 81 mg Tablet,Delayed Release (Dr/Ec) 81 mg PO DAILY lisinopril 10 mg tablet 10 mg PO DAILY amoxicillin-pot clavulanate 875-125 mg tablet 1 tab PO BID Trulicity 3 mg/0.5 mL pen injector 3 mg SUBCUT Q7D Rx Instructions: Saturday Discharge Orders: Discharge ED (Routine); Ordered 01/17/25 Ordered By: Beck Ybarra Referrals: Arben Concepcion [Primary Care Provider] - Patient Instructions: Epistaxis - Adult Activity Restrictions/Additional Instructions: Leave the Rhino Rocket in for 3 days. Have it removed by your primary care physician, ENT or your vascular surgeon during the appointment tomorrow. Print Language: Ugandan Coding Level of Care Code ED Mobile Sales Technician for Srini Hughes
[2025-01-17 12:47] VITALS: BP 148/79; PULSE 85; RESP 18; O2SAT 95
== END 2025-01-17 12:48 | disposition home or self-care (01) ==
PROVIDERS: Emergency Provider Emergency Medicine; PCP Family Medicine
DX: R04.0 Epistaxis (principal); Z79.01 Long term (current) use of anticoagulants; Z79.02 Long term (current) use of antithrombotics/antiplatelets; Z87.891 Personal history of nicotine dependence; I25.10 Atherosclerotic heart disease of native coronary artery without angina pectoris; J44.9 Chronic obstructive pulmonary disease, unspecified; I10 Essential (primary) hypertension; E11.9 Type 2 diabetes mellitus without complications; E78.5 Hyperlipidemia, unspecified
CPT/HCPCS: 99281

== ENCOUNTER → 2025-06-29 15:23 | Outpatient (BNVA) | payer OTHER, MEDICAID, SELFPAY | PROVIDERS: PCP Family Medicine; Visit Provider Internal Medicine | DX: I25.810 Atherosclerosis of coronary artery bypass graft(s) without angina pectoris (principal); I10 Essential (primary) hypertension; I48.91 Unspecified atrial fibrillation; Z79.02 Long term (current) use of antithrombotics/antiplatelets; Z79.82 Long term (current) use of aspirin; I65.21 Occlusion and stenosis of right carotid artery; E11.65 Type 2 diabetes mellitus with hyperglycemia; E11.40 Type 2 diabetes mellitus with diabetic neuropathy, unspecified; Z79.4 Long term (current) use of insulin; Z95.1 Presence of aortocoronary bypass graft; Z87.891 Personal history of nicotine dependence | CPT/HCPCS: 99213 ==